=== PATIENT | male | born 1970 | race Two or more races ===

== ENCOUNTER 2016-12-26 15:32 | Emergency (ER) | payer BC ==
[~2016-12-26] VITALS: Ht 185.4 cm; Wt 83.9 kg
[2016-12-26 15:37] VITALS: BP 159/99
[2016-12-26] MEDS ORDERED: ALBUTEROL SULF8.5 GM INH (16:36)
[2016-12-26] MEDS ORDERED: IBUPROFEN600 MG ORAL (16:36)
[2016-12-26] MEDS ORDERED: PROMETHAZINE-C118 M1 ORAL (16:36)
[2016-12-26 16:42] VITALS: BP 139/95
--- NOTE | 2016-12-26 21:35 | Emergency Room Report ---
History of Present Illness General Chief Complaint: Chest Pain Source: Patient Present Illness HPI 46-year-old male presents ED complaining of chest pain. States that he started with a cough 5 days ago which is persistent with yellowish phlegm. Notes history of smoking. Patient states 3 days ago he started developing chest tightness on the left side area worse with coughing. /10. Nonradiating. Denies shortness of breath. She states the coughing is persistent still. Denies history of hypertension or drug use. No other aggravating relieving factors. Denies any other associated symptoms Allergies: Coded Allergies: No Known Allergies (Unverified , 12/26/16) Patient History Past Medical History: none Past Surgical History: none Pertinent Family History: none Social History: Denies: smoking, alcohol use, drug use Immunizations: UTD Reviewed Nursing Documentation: PMH: Agreed, PSxH: Agreed Nursing Documentation-PMH Past Medical History: No Stated History Review of Systems All Other Systems: negative except mentioned in HPI Physical Exam Vital Signs Date Time Temp Pulse Resp B/P (MAP) Pulse Ox O2 Delivery O2 Flow Rate FiO2 12/26/16 15:37 98.1 101 19 159/99 98 Room Air Sp02 EP Interpretation: reviewed, normal General Appearance: no apparent distress, alert, GCS 15, non-toxic Head: normocephalic, atraumatic Eyes: bilateral eye normal inspection, bilateral eye PERRL ENT: hearing grossly normal, normal pharynx, no angioedema, normal voice Neck: full range of motion, supple/symm/no masses Respiratory: lungs clear, normal breath sounds, speaking full sentences, other - reproducible L sided chest wall pain Cardiovascular #1: regular rate, rhythm, no edema Cardiovascular #2: 2+ carotid (R), 2+ carotid (L), 2+ radial (R), 2+ radial (L) , 2+ dorsalis pedis (R), 2+ dorsalis pedis (L) Gastrointestinal: normal bowel sounds, non tender, soft, non-distended, no guarding, no rebound Rectal: deferred Genitourinary: normal inspection, no CVA tenderness Musculoskeletal: back normal, gait/station normal, normal range of motion, non- tender Neurologic: alert, oriented x3, responsive, motor strength/tone normal, sensory intact, speech normal Psychiatric: judgement/insight normal, memory normal, mood/affect normal, no suicidal/homicidal ideation Reflexes: 3+ bicep (R), 3+ bicep (L), 3+ tricep (R), 3+ tricep (L), 3+ knee (R) , 3+ knee (L) Skin: normal color, no rash, warm/dry, well hydrated Lymphatic: no adenopathy Medical Decision Making Diagnostic Impression: Primary Impression: Bronchitis Additional Impression: Chest wall pain ER Course Hospital Course 46-year-old male presents ED complaining of reproducible chest wall pain, cough x 5 days Differential diagnoses include: Rib fracture, MD/unstable angina, contusion, muscle strain Clinical course Patient placed on stretcher. After initial history physical exam reveals a male in no acute distress. There is some reproducible chest wall pain on the right side Given the persistent coughing history I believe pain is muscular. I ordered EKG and chest x-ray EKG-normal sinus rhythm no acute ischemic changes interpreted by me Chest x-ray-no cardiomegaly, no rib fracture, no pneumothorax, no acute process clinical findings consistent with muscle strain/costochondritis. Reassurance given. Will prescribe pain medications, inhaler and cough medication I. I feel this is a highly complex case requiring extensive working including EKG/Rhythm strip, Xray/CT/US, Blood/urine lab work, repeat exams while in ED, and administration of strong opiates/narcotics for pain control, admission to hospital or close patient follow up. Diagnosis - bronchitis, chest wall pain Stable and discharged to home with prescription for Motrin, albuterol, cough syrup. Instructed to followup with PMD. Return to ED if symptoms recur or worsen EKG Diagnostic Results Rate: normal Rhythm: NSR ST Segments: no acute changes ASA given to the pt in ED: No Rhythm Strip Diag. Results EP Interpretation: yes Rhythm: NSR, no PVC's, no ectopy Chest X-Ray Diagnostic Results Chest X-Ray Diagnostic Results : Chest X-Ray Ordered: Yes # of Views/Limited/Complete: 1 View Indication: Chest Pain EP Interpretation: Yes Interpretation: no consolidation, no effusion, no pneumothorax, no acute cardiopulmonary disease Impression: No acute disease Electronically Signed by: Electronically signed by Oleg Macdonald MD Last Vital Signs Date Time Temp Pulse Resp B/P (MAP) Pulse Ox O2 Delivery O2 Flow Rate FiO2 12/26/16 16:42 90 18 139/95 100 Room Air 12/26/16 15:37 98.1 Disposition: HOME, SELF-CARE Condition: Stable Scripts Ibuprofen* (MOTRIN*) 600 Mg Tablet 600 MG ORAL Q8H Y for For Pain, #30 TAB 0 Refills Prov: OLEG MACDONALD M.D. 12/26/16 Albuterol Sulfate* (ALBUTEROL SULFATE MDI*) 8.5 Gm Hfa.aer.ad 2 PUFF INH Q4H Y for cough/wheezing, #1 EA 0 Refills Prov: OLEG MACDONALD M.D. 12/26/16 Codeine/Promethazine Hcl* (PROMETHAZINE-CODEINE SYRUP*) 118 Ml Syrup 5 ML ORAL Q6H Y for For Cough, #118 ML 0 Refills Prov: OLEG MACDONALD M.D. 12/26/16 Patient Instructions: Acute Bronchitis, [id number] OLEG MACDONALD M.D. Dec 26, 2016 21:35
--- NOTE | 2016-12-27 09:54 | Diagnostic Imaging Report ---
Indication: Chest pain Technique: One view of the chest Comparison: none Findings: Lungs and pleural spaces are clear. Heart size is normal Impression: No acute process This agrees with the preliminary interpretation provided by the emergency room physician
--- NOTE | 2016-12-27 19:03 | Cardiology Report ---
APPROVED REPORT EKG Measurement Heart [id number] Normal sinus rhythm Normal ECG
== END 2016-12-26 16:45 | disposition home or self-care (01) ==
LOC: EMR 16:30
DX: J40 Bronchitis, not specified as acute or chronic (principal)
CPT/HCPCS: 71010; 93005; 99284

== ENCOUNTER 2017-01-06 16:33 | Emergency (ER) | payer BC ==
[~2017-01-06] VITALS: Ht 182.9 cm; Wt 81.6 kg
[~2017-01-06 16:33] MED LIST: ALBUTEROL SULF8.5 GM INH; IBUPROFEN600 MG ORAL; PROMETHAZINE-C118 M1 ORAL
[2017-01-06 16:52] VITALS: BP 124/89
--- NOTE | 2017-01-06 17:04 | Emergency Room Report ---
History of Present Illness General Chief Complaint: Upper Respiratory Illness Source: Patient Present Illness HPI Patient is a 46-year-old male who presented after increased left-sided chest pain as well as bilateral arm numbness. Patient recently been seen at the emergency department. He was diagnosed bronchitis. Patient had recently began taking Bactrim after being prescribed this by a friend. Patient noted to have a with yellow-green sputum cough. The patient had previously been prescribed cough medications. As well as inhaler Allergies: Coded Allergies: SULFAMETHOXAZOLE (Verified Allergy, Unknown, 01/06/17) TRIMETHOPRIM (Verified Allergy, Unknown, 01/06/17) Patient History Past Medical History: see triage record Reviewed Nursing Documentation: PMH: Agreed, PSxH: Agreed Nursing Documentation-PMH Past Medical History: No Stated History Review of Systems All Other Systems: negative except mentioned in HPI Physical Exam Vital Signs Date Time Temp Pulse Resp B/P (MAP) Pulse Ox O2 Delivery O2 Flow Rate FiO2 01/06/17 16:47 96.6 116 20 126/82 99 Room Air Sp02 EP Interpretation: reviewed, normal General Appearance: normal inspection, well appearing, no apparent distress, alert, GCS 15 Head: atraumatic ENT: normal ENT inspection, hearing grossly normal, normal voice Neck: normal inspection, full range of motion, supple, no bony tend Respiratory: normal inspection, lungs clear, normal breath sounds, no respiratory distress, no retraction, no wheezing Cardiovascular #1: regular rate, rhythm, no edema Gastrointestinal: normal inspection, normal bowel sounds, non tender, soft, no guarding, no hernia Genitourinary: no CVA tenderness Musculoskeletal: normal inspection, back normal, normal range of motion Neurologic: normal inspection, alert, oriented x3, responsive, 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 Differential diagnosis included but was not limited to bronchitis, pneumonia, pulmonary embolism, pericarditis, asthma, foreign body.Because of complexity of patient's case laboratory testing and imaging studies were ordered. Patient was noted to have no evidence of acute respiratory distress. Laboratory testing was unremarkable EKG interpreted by me showed normal sinus rhythm with rate of [address] or T wave changes.The patient's d- dimer was negative I which essentially makes PE very unlikely. The patient appears to be having symptoms consistent with hyperventilation. The patient was advised to return if he began having worsening chest, productive cough, increased dizziness or other concerns Labs Test 01/06/17 17:10 White Blood Count 5.7 K/UL (4.8-10.8) Red Blood Count 5.22 M/UL (4.70-6.10) Hemoglobin 14.7 G/DL (14.2-18.0) Hematocrit 49.3 % (42.0-52.0) Mean Corpuscular Volume 94 FL (80-99) Mean Corpuscular Hemoglobin 28.1 PG (27.0-31.0) Mean Corpuscular Hemoglobin Concent 29.8 G/DL (32.0-36.0) Red Cell Distribution Width 13.2 % (11.6-14.8) Platelet Count 260 K/UL (150-450) Mean Platelet Volume 6.2 FL (6.5-10.1) Neutrophils (%) (Auto) 43.9 % (45.0-75.0) Lymphocytes (%) (Auto) 36.9 % (20.0-45.0) Monocytes (%) (Auto) 13.5 % (1.0-10.0) Eosinophils (%) (Auto) 4.3 % (0.0-3.0) Basophils (%) (Auto) 1.6 % (0.0-2.0) D-Dimer 493 ng/mL (<500) Sodium Level 138 mEQ/L (135-145) Potassium Level 4.0 mEQ/L (3.4-4.9) Chloride Level 101 mEQ/L (98-107) Carbon Dioxide Level 30 mEQ/L (20-30) Anion Gap 7 (5-15) Blood Urea Nitrogen 10 mg/dL (7-23) Creatinine 1.4 mg/dL (0.7-1.2) Estimat Glomerular Filtration Rate 55.1 mL/min (>60) Glucose Level 115 mg/dL (74-106) Calcium Level 9.7 mg/dL (8.6-10.2) Total Bilirubin 0.4 mg/dL (0.0-1.2) Aspartate Amino Transf (AST/SGOT) 39 U/L (5-40) Alanine Aminotransferase (ALT/SGPT) 60 U/L (3-41) Alkaline Phosphatase 61 U/L (40-129) Troponin I < 0.30 ng/mL (<=0.30) Total Protein 7.5 g/dL (6.6-8.7) Albumin 3.9 g/dL (3.5-5.2) Globulin 3.6 g/dL Albumin/Globulin Ratio 1.0 (1.0-2.7) EKG Diagnostic Results Rate: normal Rhythm: NSR ST Segments: no acute changes ASA given to the pt in ED: No Rhythm Strip Diag. Results EP Interpretation: yes Rhythm: NSR, no PVC's, no ectopy Last Vital Signs Date Time Temp Pulse Resp B/P (MAP) Pulse Ox O2 Delivery O2 Flow Rate FiO2 01/06/17 16:52 103 21 Room Air 01/06/17 16:52 96.6 124/89 99 Status: improved Disposition: HOME, SELF-CARE Condition: Stable ChaunceyLenard Jan 06, 2017 17:04
[2017-01-06 17:43] LABS: TROPONIN I < 0.30 ng/mL (<=0.30)
[2017-01-06 17:50] LABS: CALCIUM 9.7 mg/dL (8.6-10.2); CREATININE 1.4 mg/dL (0.7-1.2); GLOMERULAR FILTRATION RATE 55.1 mL/min (>60); TOTAL PROTEIN 7.5 g/dL (6.6-8.7)
[2017-01-06 17:52] LABS: BASOPHILS % (AUTO) 1.6 % (0.0-2.0); EOSINOPHILS % (AUTO) 4.3 % (0.0-3.0); LYMPHOCYTES % (AUTO) 36.9 % (20.0-45.0); MEAN CORPUSCULAR HEMOGLOBIN 28.1 PG (27.0-31.0); MEAN CORPUSCULAR HGB CONC 29.8 G/DL (32.0-36.0); MEAN CORPUSCULAR VOLUME 94 FL (80-99); MEAN PLATELET VOLUME 6.2 FL (6.5-10.1); MONOCYTES % (AUTO) 13.5 % (1.0-10.0); NEUTROPHILS % (AUTO) 43.9 % (45.0-75.0); PLATELET COUNT 260 K/UL (150-450); RED BLOOD COUNT 5.22 M/UL (4.70-6.10); RED CELL DISTRIBUTION WIDTH 13.2 % (11.6-14.8); WHITE BLOOD COUNT 5.7 K/UL (4.8-10.8)
[2017-01-06 18:06] VITALS: BP 120/83
[2017-01-06 18:13] VITALS: BP 120/83
--- NOTE | 2017-01-07 09:53 | Diagnostic Imaging Report ---
Indication: SOB Technique: One view of the chest Comparison: none Findings: Lungs and pleural spaces are clear. Heart size is normal. No significant change Impression: No acute process
== END 2017-01-06 18:14 | disposition home or self-care (01) ==
LOC: EMR 16:55
DX: J40 Bronchitis, not specified as acute or chronic (principal); Z88.2 Allergy status to sulfonamides; Z88.1 Allergy status to other antibiotic agents
CPT/HCPCS: 36415; 71010; 80053; 84484; 85025; 85379; 93005; 99284

== ENCOUNTER 2017-02-14 12:46 | Emergency (ER) | payer BC ==
[~2017-02-14] VITALS: Ht 182.9 cm; Wt 88.5 kg
[2017-02-14] MEDS ORDERED: NKM (13:07)
[2017-02-14 13:13] VITALS: BP 145/105
[2017-02-14] MEDS ORDERED: ZYRTEC10 MG ORAL (13:19)
[2017-02-14] MEDS ORDERED: MECLIZINE HCL25 MG ORAL (13:19)
[2017-02-14 13:40] VITALS: BP 145/105
--- NOTE | 2017-02-15 16:30 | Emergency Room Report ---
History of Present Illness General Chief Complaint: Upper Respiratory Illness Source: Patient Present Illness HPI Patient present with complaints of pressure behind both ears He reports that he has had upper respiratory symptoms including mild runny nose and cough Patient now over the past several days has had increased dizziness as well Denies any chest pressures of breath denies any vomiting or diarrhea Denies any visual changes denies any focal deficit Allergies: Coded Allergies: SULFAMETHOXAZOLE (Verified Allergy, Unknown, 01/06/17) TRIMETHOPRIM (Verified Allergy, Unknown, 01/06/17) Patient History Past Medical History: see triage record Pertinent Family History: none Reviewed Nursing Documentation: PMH: Agreed, PSxH: Agreed Nursing Documentation-PMH Past Medical History: No Stated History Review of Systems All Other Systems: negative except mentioned in HPI Physical Exam Vital Signs Date Time Temp Pulse Resp B/P (MAP) Pulse Ox O2 Delivery O2 Flow Rate FiO2 02/14/17 13:01 98.1 96 16 145/105 100 Room Air Sp02 EP Interpretation: reviewed, normal General Appearance: well appearing, no apparent distress Head: normocephalic, atraumatic Eyes: bilateral eye PERRL, bilateral eye EOMI ENT: hearing grossly normal, normal pharynx, TMs + canals normal, uvula midline Neck: full range of motion, supple, no meningismus, no bony tend Respiratory: lungs clear, normal breath sounds, no rhonchi, no respiratory distress, no retraction, no accessory muscle use Cardiovascular #1: normal peripheral pulses, regular rate, rhythm, no edema, no gallop, no JVD, no murmur Gastrointestinal: normal bowel sounds, non tender, soft, no mass, no organomegaly, non-distended, no guarding, no hernia, no pulsatile mass, no rebound Musculoskeletal: normal inspection Neurologic: oriented x3, responsive, 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, motor strength/ tone normal, sensory intact Psychiatric: mood/affect normal Skin: normal color, no rash, warm/dry, palpation normal Lymphatic: normal inspection, no adenopathy Medical Decision Making Diagnostic Impression: Primary Impression: Upper respiratory infection Additional Impression: dizziness ER Course Patient has had URI symptoms At this time has fairly recent extensive workup including blood work and imaging Dizziness can be related to the URI symptoms as well No obvious focal bacterial infections And the patient will have initial conservative outpatient trial Last Vital Signs Date Time Temp Pulse Resp B/P (MAP) Pulse Ox O2 Delivery O2 Flow Rate FiO2 02/14/17 13:40 98.1 90 16 145/105 100 Room Air Status: improved Disposition: HOME, SELF-CARE Condition: Stable Scripts Meclizine Hcl* (MECLIZINE*) 25 Mg Tablet 25 MG ORAL THREE TIMES A DAY, #12 TAB Prov: CATHY VIERA D.O. 02/14/17 Cetirizine Hcl* (ZYRTEC*) 10 Mg Tablet 10 MG ORAL DAILY, #20 TAB 0 Refills Prov: CATHY VIERA D.O. 02/14/17 Referrals: NOT CHOSEN IPA/MD,REFERRING (PCP) Patient Instructions: Upper Respiratory Infection, Adult, Dizziness, Easy-to- Read Additional Instructions: Patient is provided with the discharge instructions notified to follow up with primary doctor in the next 2-3 days otherwise return to the er with any worsening symptoms. Please note that this report is being documented using [employer] technology. This can lead to erroneous entry secondary to incorrect interpretation by the dictating instrument. CATHY VIERA D.O. Feb 15, 2017 16:30
== END 2017-02-14 14:24 | disposition home or self-care (01) ==
LOC: EMR 13:23
DX: J06.9 Acute upper respiratory infection, unspecified (principal); R42 Dizziness and giddiness; Z88.2 Allergy status to sulfonamides; Z88.1 Allergy status to other antibiotic agents
CPT/HCPCS: 99283; 99284